=== PATIENT | female | born 1975 | race Caucasian/White ===

== ENCOUNTER 2016-07-17 22:03 | Emergency (ER) | payer OTHER ==
--- NOTE | 2016-07-17 22:35 | EDPHY ---
H & P HPI/ROS: HPI CHIEF COMPLAINT: Left hand abrasion HISTORY OF PRESENT ILLNESS: Patient very pleasant 41-year-old female, significant past medical history for migraine headaches, presents emergency room with a wound to the dorsum of her left hand proximal base of her index finger, her tetanus shot is up-to-date. She states she was walking her dog her dog she was handling lesion with her left hand and her dog saw a rabbit and lunged hand got dragged up against a metal sign post and sustained deep abrasion to the dorsum left hand. She decided to go home and take a nap and sleep for a few hours before coming to the emergency room. She arouses emergency room with dry blood on the dorsum of her left hand. Appears to be an abrasion however the dry blood will need to be cleaned and irrigated to see if there is a deeper laceration. Past Medical History: Migraine headaches Past Surgical History: denies any other surgical history Social History: denies daily use drugs alcohol tobacco products, tetanus shot up -to-date Family History: noncontributory ROS REVIEW OF SYSTEMS: A comprehensive 10 point review of systems is otherwise negative aside from elements mentioned in the history of present illness. Exam Constitutional triage nursing summary reviewed, vital signs reviewed, awake/ alert. Eyes normal conjunctivae and sclera, EOMI, PERRLA. HENT normal inspection, atraumatic, moist mucus membranes, no epistaxis, neck supple/ no meningismus, no raccoon eyes. Respiratory clear to auscultation bilaterally, normal breath sounds, no respiratory distress, no wheezing. Cardiovascular rate normal, regular rhythm, no murmur, no edema, distal pulses normal. Gastrointestinal soft, non-tender, no rebound, no guarding, normal bowel sounds, no distension, no pulsatile mass. Genitourinary no CVA tenderness. Musculoskeletal no midline vertebral tenderness, full range of motion, no calf swelling, no tenderness of extremities, no meningismus, good pulses, neurovascularly intact. Skin left hand: dorsum of left hand: abrasion to the dorsum left hand proximal base of index finger pink, no significant swelling, neurovascular intact, full range of motion, good enterprise software engineer strength, good cap refill, sensation intact. warm, & dry, no rash, skin atraumatic. Neurologic awake, alert and oriented x 3, AAOx3, moves all 4 extremities equally, motor intact, sensory intact, CN II-XII intact, normal cerebellar, normal vision, normal speech. Psychiatric normal mood/affect. Heme/Lymph/Immune no lymphadenopathy. Differential Diagnosis: Includes but is not limited to in a particular order, soft tissue injury, deep abrasion, laceration Medical Decision Making: Plan for patient tetanus shot is already up-to-date, wound will need to be cleaned copiously and scrubbed dry blood to see if there is a deep laceration needs to be repaired otherwise is we abrasion in gentle normal wound care will need to be applied. Re-evaluation: 225: re-evaluation at this time. Patient has been copiously cleaned and irrigated. No tendon injury no arterial injury. Neurovascular intact. Has an abrasion to the dorsum of her hand proximal base of 1st index. No laceration. No need for suture repair. Patient had a dressing in place and antibiotic ointment. Understands watch closely for infection. Source: Patient - Medical/Surgical History Hx Asthma: No Hx Chronic Respiratory Disease: No Hx Diabetes: No Hx Cardiac Disease: No Hx Renal Disease: No Hx Cirrhosis: No Hx Alcoholism: No Hx HIV/AIDS: No Hx Splenectomy or Spleen Trauma: No Other PMH: FIBROMYALGIA, CFS(CHRNIC FATIGUE SYNDROME, IC,CAUSES PAIN. MIGRAINES - Social History Smoking Status: Current every day smoker Allergies/Adverse Reactions: codeine [Codeine] Allergy (Verified 01/18/13 21:27) gluten [Gluten] Allergy (Verified 01/18/13 21:27) Home Medications: Medication Instructions Recorded TEMAZEPAM 01/18/13 Nortriptyline HCl 10 mg PO 07/17/16 Departure - Departure Disposition: Home, Routine, Self-Care Clinical Impression: Hand abrasion Qualifiers: Encounter type: initial encounter Laterality: left Qualified Code(s): S60.512A - Abrasion of left hand, initial encounter Condition: Good Instructions: Abrasion (ED) Additional Instructions: 1.Watch the wound closely for signs of infection this includes worsening redness , swelling, drainage or pus or fever. 2. return emergency room if you have any questions or concerns. Referrals: NONE *PRIMARY CARE P,. [Primary Care Provider] - As per Instructions
[2016-07-17 22:55] VITALS: BP 117/81; PULSE 88; RESP 16; TEMP 98.2; O2SAT 95
== END 2016-07-17 22:56 | disposition home or self-care (01) ==
LOC: CED 22:03
DX: S60.512A Abrasion of left hand, initial encounter (principal); F17.200 Nicotine dependence, unspecified, uncomplicated; W45.8XXA Other foreign body or object entering through skin, initial encounter; Y99.8 Other external cause status; Y93.K1 Activity, walking an animal